=== PATIENT | female | born 1990 | race Hispanic/Latino ===

== ENCOUNTER 2019-01-11 13:07 | Emergency (ER) | payer BC ==
[~2019-01-11] VITALS: Ht 167.6 cm; Wt 81.6 kg
== END 2019-01-11 16:04 | disposition home or self-care (01) ==
LOC: ER 13:07
DX: R50.9 Fever, unspecified (principal); R05 Cough; J11.1 Influenza due to unidentified influenza virus with other respiratory manifestations
CPT/HCPCS: 87400; 99283